=== PATIENT | male | born 1950 | race Caucasian/White ===

== ENCOUNTER 2018-09-03 10:59 | Observation (INO) | payer OTHER, MEDICARE ==
[~2018-09-03] VITALS: Ht 182.9 cm; Wt 94.5 kg
--- NOTE | 2018-09-03 11:07 | ER Report ---
History and Physical Time Seen By MD: 11:07 Hx. of Stated Complaint: PATIENT REPORTS CHEST PAIN THAT STARTED AROUND 03:15. PREVIOUS AL IN 2007 HPI/ROS CHIEF COMPLAINT: Chest pain, bilateral leg weakness HISTORY OF PRESENT ILLNESS: 67-year-old male patient presents to emergency room with complaint of chest pain and bilateral leg weakness. Patient states this been going on since earlier this morning. 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 He states [facility]. He states when he got in there that his legs gave out. Patient states that this happens occasionally, however seems to be happening more frequently. He states that he did fall again some product was tacked in the interwave the [employer]. He states that he's had persistent weakness. Patient stat es that this been going on since around his first back surgery, however seems to be slightly worse. Patient denies having any vomiting, he states he has been nauseated. Patient states that his pain seems the more the epigastric region. He states he does have a medication which he takes for that, however he is not sure what it is. He denies having any fevers or chills. Patient states he's been havi ng intermittent chest pain for the past 2 weeks. He states that doesn't seem to getting better or worse. REVIEW OF SYSTEMS: Respiratory: No cough, no dyspnea. Cardiovascular: As noted above Gastrointestinal: No vomiting, no abdominal pain. Musculoskeletal: As noted above Allergies: Coded Allergies: No Known Drug Allergies (Unverified , 09/03/18) Home Meds No Active Prescriptions or Reported Meds Past Medical/Surgical History Patient has a past medical history of AL, hypertension, small bowel, back pain. Patient has a surgical history of 5 back surgeries. Reviewed Nurses Notes: Yes Hx Substance Use Disorder: No Hx Alcohol Use: No Constitutional Vital Sign - Last 24 Hours 09/03/18 09/03/18 09/03/18 09/03/18 10:59 11:01 11:10 11:29 Temp 98.2 Pulse 88 80 Resp 24 16 B/P (MAP) 112/85 124/82 (96) Pulse Ox 93 95 95 O2 Delivery Nasal Cannula 09/03/18 09/03/18 09/03/18 11:47 11:59 12:00 Pulse 70 Resp 12 B/P (MAP) 118/81 (93) 120/86 (97) Physical Exam General Appearance: The patient is alert, has no immediate need for airway protection and no current signs of toxicity. Respiratory: Chest is non tender, lungs are clear to auscultation. Cardiac: regular rate and rhythm Gastrointestinal: Abdomen is soft and tender in the epigastric region, no masses, bowel sounds normal. Musculoskeletal: Neck: Neck is supple and non tender. Extremities have full range of motion and are non tender. Skin: No rashes or lesions. DIFFERENTIAL DIAGNOSIS: After history and physical exam differential diagnosis was considered for chest pain including but not limited to myocardial ischemia, pericarditis pulmonary embolus, chest wall pain, pleural inflammation and pulmonary infectious causes. Also included is back pain including but not limited to muscular pain, herniated disc, spine fracture, intra-abdominal causes and urinary tract infection. Medical Decision Making Data Points Result Diagram: 09/03/18 1050 09/03/18 1050 Laboratory Hematology Test 09/03/18 10:50 09/03/18 13:10 Red Blood Count 5.10 M/uL (4.00-5.60) Mean Corpuscular Volume 94.6 fL (80.0-96.0) Mean Corpuscular Hemoglobin 32.5 pg (26.0-33.0) Mean Corpuscular Hemoglobin Concent 34.3 g/dL (32.0-36.0) Red Cell Distribution Width 12.7 % (11.5-14.5) Mean Platelet Volume 9.2 fL (7.2-11.1) Neutrophils (%) (Auto) 45.7 % (39.4-72.5) Lymphocytes (%) (Auto) 39.5 % (17.6-49.6) Monocytes (%) (Auto) 8.8 % (4.1-12.4) Eosinophils (%) (Auto) 5.2 % (0.4-6.7) Basophils (%) (Auto) 0.8 % (0.3-1.4) Nucleated RBC Relative Count (auto) 0.1 /100WBC Neutrophils # (Auto) 2.4 K/uL (2.0-7.4) Lymphocytes # (Auto) 2.1 K/uL (1.3-3.6) Monocytes # (Auto) 0.5 K/uL (0.3-1.0) Eosinophils # (Auto) 0.3 K/uL (0.0-0.5) Basophils # (Auto) 0.0 K/uL (0.0-0.1) Nucleated RBC Absolute Count (auto) 0.00 K/uL Prothrombin Time 13.2 seconds (12.0-14.4) Prothromb Time International Ratio 1.00 Activated Partial Thromboplast Time 30 seconds (23-35) D-Dimer Quantitative (PE/DVT) 0.43 ug/ml (0-0.50) Sodium Level 141 mmol/L (137-145) Potassium Level 3.9 mmol/L (3.5-5.0) Chloride Level 104 mmol/L (98-107) Carbon Dioxide Level 33 mmol/L (22-30) Blood Urea Nitrogen 14 mg/dl (9-21) Creatinine 1.20 mg/dl (0.66-1.25) Glomerular Filtration Rate Calc > 60.0 Random Glucose 124 mg/dl (75-110) Calcium Level 9.5 mg/dl (8.4-10.2) Total Bilirubin 0.6 mg/dl (0.2-1.3) Aspartate Amino Transf (AST/SGOT) 31 U/L (0-35) Alanine Aminotransferase (ALT/SGPT) 41 U/L (0-56) Alkaline Phosphatase 51 U/L (0-126) Troponin I < 0.012 ng/ml B-Type Natriuretic Peptide 10 pg/ml (0-100) Total Protein 8.3 g/dl (6.3-8.2) Albumin 4.6 g/dl (3.5-5.0) Amylase Level 44 U/L (0-110) Lipase 43 U/L (23-300) Urine Color Yellow Urine Clarity Clear Urine pH 7.0 pH (4.8-9.5) Urine Specific [place] 1.019 Urine Protein Negative mg/dL (NEGATIVE) Urine Glucose (UA) Negative mg/dL (NEGATIVE) Urine Ketones Negative mg/dL (NEGATIVE) Urine Blood Negative (NEGATIVE) Urine Nitrite Negative (NEGATIVE) Urine Bilirubin Negative (NEGATIVE) Urine Urobilinogen Negative mg/dL (0.2-1.9) Urine Leukocyte Esterase Negative (NEGATIVE) Urine RBC <1 /HPF (0-2/HPF) Urine WBC <1 /HPF (0-5/HPF) Urine Squamous Epithelial Cells None /LPF (</=FEW) Urine Bacteria Negative /HPF (NONE-FEW) Urine Mucus None /HPF (NONE-FEW) Chemistry Test 09/03/18 10:50 09/03/18 13:10 White Blood Count 5.2 k/uL (4.5-11.0) Red Blood Count 5.10 M/uL (4.00-5.60) Hemoglobin 16.5 g/dL (14.0-18.0) Hematocrit 48.2 % (42.0-52.0) Mean Corpuscular Volume 94.6 fL (80.0-96.0) Mean Corpuscular Hemoglobin 32.5 pg (26.0-33.0) Mean Corpuscular Hemoglobin Concent 34.3 g/dL (32.0-36.0) Red Cell Distribution Width 12.7 % (11.5-14.5) Platelet Count 226 K/uL (150-450) Mean Platelet Volume 9.2 fL (7.2-11.1) Neutrophils (%) (Auto) 45.7 % (39.4-72.5) Lymphocytes (%) (Auto) 39.5 % (17.6-49.6) Monocytes (%) (Auto) 8.8 % (4.1-12.4) Eosinophils (%) (Auto) 5.2 % (0.4-6.7) Basophils (%) (Auto) 0.8 % (0.3-1.4) Nucleated RBC Relative Count (auto) 0.1 /100WBC Neutrophils # (Auto) 2.4 K/uL (2.0-7.4) Lymphocytes # (Auto) 2.1 K/uL (1.3-3.6) Monocytes # (Auto) 0.5 K/uL (0.3-1.0) Eosinophils # (Auto) 0.3 K/uL (0.0-0.5) Basophils # (Auto) 0.0 K/uL (0.0-0.1) Nucleated RBC Absolute Count (auto) 0.00 K/uL Prothrombin Time 13.2 seconds (12.0-14.4) Prothromb Time International Ratio 1.00 Activated Partial Thromboplast Time 30 seconds (23-35) D-Dimer Quantitative (PE/DVT) 0.43 ug/ml (0-0.50) Glomerular Filtration Rate Calc > 60.0 Calcium Level 9.5 mg/dl (8.4-10.2) Total Bilirubin 0.6 mg/dl (0.2-1.3) Aspartate Amino Transf (AST/SGOT) 31 U/L (0-35) Alanine Aminotransferase (ALT/SGPT) 41 U/L (0-56) Alkaline Phosphatase 51 U/L (0-126) Troponin I < 0.012 ng/ml B-Type Natriuretic Peptide 10 pg/ml (0-100) Total Protein 8.3 g/dl (6.3-8.2) Albumin 4.6 g/dl (3.5-5.0) Amylase Level 44 U/L (0-110) Lipase 43 U/L (23-300) Urine Color Yellow Urine Clarity Clear Urine pH 7.0 pH (4.8-9.5) Urine Specific [place] 1.019 Urine Protein Negative mg/dL (NEGATIVE) Urine Glucose (UA) Negative mg/dL (NEGATIVE) Urine Ketones Negative mg/dL (NEGATIVE) Urine Blood Negative (NEGATIVE) Urine Nitrite Negative (NEGATIVE) Urine Bilirubin Negative (NEGATIVE) Urine Urobilinogen Negative mg/dL (0.2-1.9) Urine Leukocyte Esterase Negative (NEGATIVE) Urine RBC <1 /HPF (0-2/HPF) Urine WBC <1 /HPF (0-5/HPF) Urine Squamous Epithelial Cells None /LPF (</=FEW) Urine Bacteria Negative /HPF (NONE-FEW) Urine Mucus None /HPF (NONE-FEW) Coagulation Test 09/03/18 10:50 Prothrombin Time 13.2 seconds Prothromb Time International Ratio 1.00 Activated Partial Thromboplast Time 30 seconds D-Dimer Quantitative (PE/DVT) 0.43 ug/ml Urinalysis Test 09/03/18 13:10 Urine Color Yellow Urine Clarity Clear Urine pH 7.0 pH (4.8-9.5) Urine Specific [place] 1.019 Urine Protein Negative mg/dL (NEGATIVE) Urine Glucose (UA) Negative mg/dL (NEGATIVE) Urine Ketones Negative mg/dL (NEGATIVE) Urine Blood Negative (NEGATIVE) Urine Nitrite Negative (NEGATIVE) Urine Bilirubin Negative (NEGATIVE) Urine Urobilinogen Negative mg/dL (0.2-1.9) Urine Leukocyte Esterase Negative (NEGATIVE) Urine RBC <1 /HPF (0-2/HPF) Urine WBC <1 /HPF (0-5/HPF) Urine Squamous Epithelial Cells None /LPF (</=FEW) Urine Bacteria Negative /HPF (NONE-FEW) Urine Mucus None /HPF (NONE-FEW) EKG/Imaging EKG Interpretation 12 lead EKG: Rhythm: normal sinus rhythm [place]: Left axis deviation QRS: normal ST segments: normal Imaging Exam type: CHEST SINGLE AP History: post ng tube placement Comparison: September 03, 2018 at 11:48 AM. Findings: There has been interval placement of an NG tube. The tube is not ideally seen although there appears to be faint visualization of the tube in the left upper quadrant abdomen. Clinical correlation needed. The lungs are free of consolidation. This no evidence pleural effusion's, pneumothorax or pneumomediastinum. The cardiac silhouette is normal in size. IMPRESSION: 1. NG tube is not ideally seen although the distal tip appears to be faintly identified over the left upper quadrant of abdomen. Report Dictated By: Amina Walker MD at 09/03/2018 4:12 PM Report E-Signed By: Amina Walker MD at 09/03/2018 4:[address] ABDOMEN PELVIS W/ CON COMPARISON: None. HISTORY: abdominal pain, epigastric. TECHNIQUE: Axial CT abdomen and pelvis with intravenous contrast. Coronal and sagittal reformats. One of the following dose optimization techniques was utilized in the performance of this exam: automated exposure control; adjustment of the mA and/or kV according to patient size; or use of iterative reconstruction technique. Specific details can be referenced in the facility's radiology CT exam operational policy. CONTRAST: 75 mL of IV Isovue-370. FINDINGS: LUNG BASES: Negative. LIVER: Negative. BILIARY: Negative. SPLEEN: Small granulomatous calcifications indicative of healed previous infection. Otherwise normal. PANCREAS: Negative. ADRENALS: Negative. KIDNEYS: Negative. GI/MESENTERY: Fluid in the under distended stomach. Fluid in the upper normal sized duodenum. Mildly dilated proximal jejunum, containing mostly fluid with a small amount of gas, reaching about 4 cm diameter with transition to normal caliber/ collapsed small bowel distal to this loop suggestive of a partial small bowel obstruction. There is no bowel wall thickening. The appendix is normal. No localized inflammatory fat stranding or free air or free/loculated fluid. Moderate colonic stool, normal versus constipation, otherwise unremarkable. VASCULAR: Mild vascular calcifications. LYMPH NODES: Negative. BLADDER: Negative. PELVIC ORGANS: Negative. BONES: Moderate degenerative changes in the lower thoracic and lumbar spine and in both hips. Previous L5-S1 fusion changes anteriorly and posteriorly. No hardware-related complications are evident. OTHER: Negative. IMPRESSION: 1. Fluid-filled dilated loop of proximal jejunum with transition to normal caliber/collapsed bowel suspicious for a mild partial small bowel obstruction. No specific cause is identified. 2. Moderate colonic stool which may be normal or due to constipation. Report Dictated By: Luis Roberson at 09/03/2018 1:39 PM Report E-Signed By: Luis Roberson at 09/03/2018 1:46 PM Exam type: CHEST PA LAT History: Chest pain radiating to left side Comparison: None. Findings: The lungs are free of acute effusions infiltrates or edema. There is no evidence of a pneumothorax or pneumomediastinum. A calcified granuloma projects over the right upper lobe Cardiac silhouette is normal in size. The trachea is midline. Incompletely imaged are postsurgical changes of the lower cervical spine. On the lateral view there are air-fluid levels in the stomach and bowel although appear nondilated IMPRESSION: 1. No acute cardiopulmonary process is seen Report Dictated By: Amina Walker MD at 09/03/2018 11:54 AM Report E-Signed By: Amnia Walker MD at 09/03/2018 11:56 AM Exam type: L-SPINE >4 VIEWS History: Chest pain radiating to left side Comparison: None. Findings: There are five nonrib-bearing lumbar-type vertebral bodies present. There is no evidence of acute fractures or subluxations. There are postsurgical changes from posterior lumbar interbody fusion at L5-S1 with intervertebral support cage. There is moderate disc space narrowing at L5-S1 and mild disc space narrowing from L1 to L5. Anterior osteophytes are seen throughout the lumbar spine and visualized lower thoracic spine IMPRESSION: 1. Postsurgical changes from posterior lumbar interbody fusion at L5-S1 No evidence of acute fractures or subluxations identified Report Dictated By: Amina Walker MD at 09/03/2018 12:18 PM Report E-Signed By: Amina Walker MD at 09/03/2018 12:20 PM ED Course/Re-evaluation ED Course Patient was admitted to an exam room, history and physical were obtained. Differential diagnoses were considered. On examination lungs are clear, heart regular, abdomen is soft and tender in the epigastric and left upper quadrant. A CBC, CMP, urinalysis, EKG, troponin were done. Labs were unremarkable, troponin was negative. With the patient complaining of weakness to the lower extremity is CT scan of the head was done, chest x-ray were done. The imaging results were unremarkable. I discussed findings with patient. He was continuing to have persistent abdominal pain. As a result we will go ahead and do a CT scan of the abdomen and pelvis. Patient had what appears to be a small bowel obstruction. I discussed findings with patient. I informed her that typically we did go ahead and admit patients to rest the gut and continue with IV hydration. He was okay with that. I discussed the case with Dr. Murphy, general surgeon, who agreed to accept the patient for admission. He requested that a NG tube was placed. That was inserted and the patient tolerated procedure well. Patient was admitted to the floor under the care of Dr. Murphy. Decision to Disposition Date: Sep 03, 2018 Decision to Disposition Time: 14:19 Depart Departure Latest Vital Signs Vital Signs Date Time Temp Pulse Resp B/P (MAP) Pulse Ox O2 Delivery O2 Flow Rate FiO2 09/03/18 12:00 120/86 (97) 09/03/18 11:59 70 12 09/03/18 11:29 95 09/03/18 11:01 98.2 Nasal Cannula Impression: Primary Impression: Small bowel obstruction Condition: Condition Unchanged Disposition: Admitted from ER New Scripts No Active Prescriptions or Reported DARRELL Thompson Sep 03, 2018 11:07
[2018-09-03] MEDS ORDERED: NS(*) 0.9% 1000 ML BAG 1,000 ML IV ONE (11:14)
[2018-09-03 11:23] LABS: PLATELET COUNT, AUTOMATED 226 K/uL (150-450)
--- NOTE | 2018-09-03 11:40 | EKG ---
[facility] PATIENT NAME: PK RAMOS : [id number] MR: [id number] V: [id number] EXAM DATE: ORDERING PHYSICIAN: DARRELL GIBBS TECHNOLOGIST: Test Reason : chest pain Blood Pressure : / mmHG Vent. Rate : 076 BPM Atrial Rate : 076 BPM P-R Int : 174 ms QRS Dur : 088 ms QT Int : 392 ms P-R-T Axes : 040 -32 051 degrees QTc Int : 441 ms Normal sinus rhythm Left axis deviation Inferior infarct , age undetermined Abnormal ECG No previous ECGs available Confirmed by SHAUN LONDONO ([id number]) on 09/03/2018 5:57:48 PM Referred By: Confirmed By:SHAUN LONDONO
--- NOTE | 2018-09-03 12:00 | RADIOLOGY IMAGING REPORT ---
FACILITY: [facility] [place] PATIENT NAME: Ghassan Guerrier : 1950 MR: [id number] V: [id number] EXAM DATE: ORDERING PHYSICIAN: DARRELL GIBBS TECHNOLOGIST: Location: [facility] Patient: Ghassan Guerrier : 1950 Visit/Account:[id number] Date of Sevice: 09/03/2018 Exam type: CHEST PA LAT History: Chest pain radiating to left side Comparison: None. Findings: The lungs are free of acute effusions infiltrates or edema. There is no evidence of a pneumothorax o r pneumomediastinum. A calcified granuloma projects over the right upper lobe Cardiac silhouette is normal in size. The trachea is midline. Incompletely imaged are postsurgical changes of the lower c ervical spine. On the lateral view there are air-fluid levels in the stomach and bowel although appe ar nondilated IMPRESSION: 1. No acute cardiopulmonary process is seen Report Dictated By: Amina Walker MD at 09/03/2018 11:54 AM Report E-Signed By: Amina Walker MD at 09/03/2018 11:56 AM WSN:[email or web address]
--- NOTE | 2018-09-03 12:24 | RADIOLOGY IMAGING REPORT ---
FACILITY: [facility] [place] PATIENT NAME: Ghassan Guerrier : 1950 MR: [id number] V: [id number] EXAM DATE: ORDERING PHYSICIAN: DARRELL GIBBS TECHNOLOGIST: Location: [facility] [place] Patient: Ghassan Guerrier : 1950 Visit/Account:[id number] Date of Sevice: 09/03/2018 Exam type: L-SPINE >4 VIEWS History: Chest pain radiating to left side Comparison: None. Findings: There are five nonrib-bearing lumbar-type vertebral bodies present. There is no evidence of acute fr actures or subluxations. There are postsurgical changes from posterior lumbar interbody fusion at L5 -S1 with intervertebral support cage. There is moderate disc space narrowing at L5-S1 and mild disc space narrowing from L1 to L5. Anterior osteophytes are seen throughout the lumbar spine and visuali zed lower thoracic spine IMPRESSION: 1. Postsurgical changes from posterior lumbar interbody fusion at L5-S1 No evidence of acute fractures or subluxations identified Report Dictated By: Amina Walker MD at 09/03/2018 12:18 PM Report E-Signed By: Amina Walker MD at 09/03/2018 12:20 PM WSN:[email or web address]
[2018-09-03] MEDS ORDERED: LIDOCAINE 2% VISC SLN 15ML UDC PO ONE (12:40)
[2018-09-03] MEDS ORDERED: MAG HYD/AL HYD/SIMETH 30ML UDC PO ONE (12:40)
[2018-09-03] MEDS ORDERED: IOPAMIDOL 76% 100 ML INFUS BTL 100 ML ONE (12:49)
--- NOTE | 2018-09-03 13:50 | RADIOLOGY IMAGING REPORT ---
FACILITY: [facility] PATIENT NAME: Ghassan Guerrier : 1950 MR: [id number] V: [id number] EXAM DATE: ORDERING PHYSICIAN: DARRELL GIBBS TECHNOLOGIST: Location: [facility] Patient: Ghassan Guerrier : 1950 Visit/Account:[id number] Date of Sevice: 09/03/2018 CT ABDOMEN PELVIS W/ CON COMPARISON: None. HISTORY: abdominal pain, epigastric. TECHNIQUE: Axial CT abdomen and pelvis with intravenous contrast. Coronal and sagittal reformats. O ne of the following dose optimization techniques was utilized in the performance of this exam: autom ated exposure control; adjustment of the mA and/or kV according to patient size; or use of iterative reconstruction technique. Specific details can be referenced in the facility's radiology CT exam ope rational policy. CONTRAST: 75 mL of IV Isovue-370. FINDINGS: LUNG BASES: Negative. LIVER: Negative. BILIARY: Negative. SPLEEN: Small granulomatous calcifications indicative of healed previous infection. Otherwise normal . PANCREAS: Negative. ADRENALS: Negative. KIDNEYS: Negative. GI/MESENTERY: Fluid in the under distended stomach. Fluid in the upper normal sized duodenum. Mildly dilated proximal jejunum, containing mostly fluid with a small amount of gas, reaching about 4 cm di ameter with transition to normal caliber/ collapsed small bowel distal to this loop suggestive of a p artial small bowel obstruction. There is no bowel wall thickening. The appendix is normal. No localiz ed inflammatory fat stranding or free air or free/loculated fluid. Moderate colonic stool, normal luanne paris constipation, otherwise unremarkable. VASCULAR: Mild vascular calcifications. LYMPH NODES: Negative. BLADDER: Negative. PELVIC ORGANS: Negative. BONES: Moderate degenerative changes in the lower thoracic and lumbar spine and in both hips. Previo us L5-S1 fusion changes anteriorly and posteriorly. No hardware-related complications are evident. OTHER: Negative. IMPRESSION: 1. Fluid-filled dilated loop of proximal jejunum with transition to normal caliber/collapsed bowel s uspicious for a mild partial small bowel obstruction. No specific cause is identified. 2. Moderate colonic stool which may be normal or due to constipation. Report Dictated By: Luis Roberson at 09/03/2018 1:39 PM Report E-Signed By: Luis Roberson at 09/03/2018 1:46 PM WSN:[id number]
[2018-09-03] MEDS ORDERED: MORPHINE 4 MG/ML SDV IVP ONE (14:20)
[2018-09-03] MEDS ORDERED: ONDANSETRON 4 MG/2 ML VIAL IVP PRN ×2 (15:10→21:35)
[2018-09-03] MEDS ORDERED: NS(*) 0.9% 1000 ML BAG 1,000 ML IV PRN (15:10)
[2018-09-03 15:34] VITALS: BP 132/83
--- NOTE | 2018-09-03 16:43 | RADIOLOGY IMAGING REPORT ---
FACILITY: [facility] PATIENT NAME: Ghassan Guerrier : 1950 MR: [id number] V: [id number] EXAM DATE: ORDERING PHYSICIAN: DARRELL GIBBS TECHNOLOGIST: Location: [facility] [place] Patient: Ghassan Guerrier : 1950 Visit/Account:[id number] Date of Sevice: 09/03/2018 Exam type: CHEST SINGLE AP History: post ng tube placement Comparison: September 03, 2018 at 11:48 AM. Findings: There has been interval placement of an NG tube. The tube is not ideally seen although there appears to be faint visualization of the tube in the left upper quadrant abdomen. Clinical correlation need ed. The lungs are free of consolidation. This no evidence pleural effusion's, pneumothorax or pneum omediastinum. The cardiac silhouette is normal in size. IMPRESSION: 1. NG tube is not ideally seen although the distal tip appears to be faintly identified over the lef t upper quadrant of abdomen. Report Dictated By: Amina Walker MD at 09/03/2018 4:12 PM Report E-Signed By: Amina Walker MD at 09/03/2018 4:39 PM WSN:[email or web address]
[2018-09-03 18:55] VITALS: BP 119/85
[2018-09-03] MEDS: MORPHINE 2 MG/ML SYR IVP PRN (19:29)
[2018-09-03] MEDS ORDERED: FLUSH 10 ML SYR IVP PRN (21:35)
[2018-09-03] MEDS ORDERED: PANTOPRAZOLE SOD 40 MG IV VIAL IVP ONE (21:35)
--- NOTE | 2018-09-03 21:49 | Gen Surgery History & Physical ---
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 He thought he was having a heart attack so he came in to the ER for evaluation. He had similar symptoms last week and he was apparently evaluated by his PCM in [place] but he was told nothing was found although no testing was completed, according to the patient. In the ER, a CT revealed a SBO involving his proximal jejunum. He feels bloated. He hasn't passed flatus for 2 days, last BM was yesterday, apparently normal. No h/o abdominal surgery. No previous h/o SBO. No emesis, only nausea for the last day. He has a h/o depression and chronic back pain and he can tell me he takes Wellbutrin and oxycodone but he can't tell me his doses or any of his other medications. History Problems: (1) Depression Status: Chronic (2) Chronic back pain Status: Chronic (3) Hypertension Status: Chronic Home Meds No Active Prescriptions or Reported Meds Allergies: Coded Allergies: No Known Drug Allergies (Unverified , 09/03/18) Patient History: FH: atrial fibrillation MOTHER FH: prostate cancer FATHER Review of Systems All Systems Reviewed/Normal: Yes, Except as Noted Cardiovascular: Chest Pain Gastrointestinal: Abdominal Pain Exam General Appearance: Alert, Awake, No Acute Distress, Afebrile Neuro: No Gross deficits Eyes: PERRLA Cardiovascular: Regular Rate and Rhythm Respiratory: Clear to Auscultation GI: Other (Soft, mild epigastric TTP, no palpable mass or bulge.) Extremities: Warm, Perfused Psych: Appropriate Mood & Affect Medical Decision Making Data Points Result Diagram: 09/03/18 1050 09/03/18 1050 Assessment and Plan Problems: (1) Small bowel obstruction Status: Acute Assessment & Plan: 09/03/18: SBO, specifically proximal jejunum. No h/o abdominal surgeries. Could be related to enteritis, ulcer, IBD, neoplasm. Will admit, NPO, bowel rest, NG tube decompression. Will order UGI/SBFT tomorrow to see if this gives us an idea as to the cause of his obstruction. I have explained his findings as well as this plan with the patient and he seems to understand and seems agreeable with this plan. According to nursing staff, his will call in the morning with all of his medications, frequencies, and dosing. Will hold off on his regular medications until GI function better and we have confirmed his medications. Since he was having chest pain (cardiac w/u negative) will watch him on telemetry for a day or two. Will start PPI rx and lovenox for GI prophylaxis. Condition Stable. Time Spent: < 30 min Venous Thromboembolism VTE Risk Physician Assess for VTE Risk: Yes Patient's VTE Risk: Low VTE Diagnostic Test 2 Days Prior to Admit: No Antithrombotics Is Pt On Any Antithrombotics?: No SHAUN BRYANT MD Sep 03, 2018 21:49
[2018-09-03] MEDS: KCL/D1/2NS 20 MEQ 1000 ML 1,000 ML IV PRN (22:18)
[2018-09-03 22:55] VITALS: BP 121/73
[2018-09-04 02:55] VITALS: BP 130/79
[2018-09-04] MEDS: MORPHINE 2 MG/ML SYR IVP PRN ×2 (03:18→08:29)
[2018-09-04] MEDS: KCL/D1/2NS 20 MEQ 1000 ML 1,000 ML IV PRN ×2 (06:10→20:44)
[2018-09-04 06:24] LABS: PLATELET COUNT, AUTOMATED 183 K/uL (150-450)
[2018-09-04 07:08] VITALS: BP 123/72
--- NOTE | 2018-09-04 08:39 | General Surgery Progress Note ---
Subjective Progress Notes Subjective No complaints other than the NG tube causing a sore throat this morning. He reports that he is passing gas at this point but no bowel movement. No abdominal pain right now. Physical Exam Vital Signs Date Time Temp Pulse Resp B/P (MAP) Pulse Ox O2 Delivery O2 Flow Rate FiO2 09/04/18 07:08 97.4 64 20 123/72 (89) 96 Nasal Cannula 09/04/18 02:55 1.0 Intake and Output 09/04/18 06:59 Intake Total 2606 ml Output Total 750 ml Balance 1856 ml Intake Oral 0 ml IV Total 2606 ml Output Gastric Drainage Total 750 ml # Voids 1 General Appearance: Alert, Awake, No Acute Distress, Afebrile GI: Soft and Non-Tender Extremities: Warm, Perfused Result Diagram: 09/04/1853209/04/18532 Assessment and Plan Problems: (1) Small bowel obstruction Status: Acute Assessment & Plan: 09/03/18: SBO, specifically proximal jejunum. No h/o abdominal surgeries. Could be related to enteritis, ulcer, IBD, neoplasm. Will admit, NPO, bowel rest, NG tube decompression. Will order UGI/SBFT tomorrow to see if this gives us an idea as to the cause of his obstruction. I have explained his findings as well as this plan with the patient and he seems to understand and seems agreeable with this plan. According to nursing staff, his will call in the morning with all of his medications, frequencies, and dosing. Will hold off on his regular medications until GI function better and we have confirmed his medications. Since he was having chest pain (cardiac w/u negative) will watch him on telemetry for a day or two. Will start PPI rx and lovenox for GI prophylaxis. 09/04/18: Clinically seems to be doing better. He wants to get the NG tube out. I have recommended we get the upper GI and small bowel follow-through today while the tube is in and if unremarkable and it looks clinically advisable to do so then we can remove the NG tube later today. The patient seems agreeable with this plan after I explained to him. I have talked to the radiologist and asked i f we can start with Gastrografin and if it progresses through his upper GI tract and through his jejunum without problems then to use barium to increase the diagnostic yield of the study. She is in agreement with this. Continue bowel rest and NG tube decompression until after the radiology test today. We'll continue IV fluids as well. Condition Stable Time Spent: < 30 min Exam Sepsis Risk: No Definite Risk SHAUN BRYANT MD Sep 04, 2018 08:39
[2018-09-04] MEDS ORDERED: BENZOCAINE/MENTHOL 1 EACH LOZG PO PRN (08:40)
[2018-09-04] MEDS ORDERED: PANTOPRAZOLE SOD 40 MG IV VIAL IVP SCH (09:00)
[2018-09-04] MEDS ORDERED: DIATRIZOATE MEGL/DIATRIZOA SOD 120 ML SOLN PO ONE (09:22)
[2018-09-04] MEDS ORDERED: BARIUM SULFATE 176 GM BTL PO ONE (09:26)
[2018-09-04 11:23] VITALS: BP 137/84
[2018-09-04] MEDS: ENOXAPARIN 40 MG/0.4ML SYR SC SCH (11:34)
[2018-09-04 11:56] VITALS: Ht 182.9 cm; Wt 94.5 kg
[2018-09-04] MEDS: PANTOPRAZOLE SOD 20 MG TABEC PO SCH (12:20)
--- NOTE | 2018-09-04 12:24 | General Surgery Progress Note ---
Subjective Progress Notes Subjective no new issues, wants NG out Physical Exam Vital Signs Date Time Temp Pulse Resp B/P (MAP) Pulse Ox O2 Delivery O2 Flow Rate FiO2 09/04/18 11:23 97.8 59 18 137/84 (101) 96 Nasal Cannula 1.0 Intake and Output 09/04/18 07:00 Intake Total 2606 ml Output Total 750 ml Balance 1856 ml Intake Oral 0 ml IV Total 2606 ml Output Gastric Drainage Total 750 ml # Voids 1 General Appearance: Alert, Awake, No Acute Distress, Afebrile GI: Soft and Non-Tender Result Diagram: 09/04/18 0533 09/04/1833 Assessment and Plan Problems: (1) Small bowel obstruction Status: Acute Assessment & Plan: 09/03/18: SBO, specifically proximal jejunum. No h/o abdominal surgeries. Could be related to enteritis, ulcer, IBD, neoplasm. Will admit, NPO, bowel rest, NG tube decompression. Will order UGI/SBFT tomorrow to see if this gives us an idea as to the cause of his obstruction. I have explained his findings as well as this plan with the patient and he seems to understand and seems agreeable with this plan. According to nursing staff, his will call in the morning with all of his medications, frequencies, and dosing. Will hold off on his regular medications until GI function better and we have confirmed his medications. Since he was having chest pain (cardiac w/u negative) will watch him on telemetry for a day or two. Will start PPI rx and lovenox for GI prophylaxis. 09/04/18: Clinically seems to be doing better. He wants to get the NG tube out. I have recommended we get the upper GI and small bowel follow-through today while the tube is in and if unremarkable and it looks clinically advisable to do so then we can remove the NG tube later today. The patient seems agreeable with this plan after I explained to him. I have talked to the radiologist and asked if we can start with Gastrografin and if it progresses through his upper GI tract and through his jejunum without problems then to use barium to increase the diagnostic yield of the study. She is in agreement with this. Continue bowel rest and NG tube decompression until after the radiology test today. We'll continue IV fluids as well. 09/04/18: SBFT with contrast into colon within 2 hours. Will DC NGT and ADAT. Fleets enema today. Needs to be up and ambulating. Anticipate DC in am. Exam Sepsis Risk: No Definite Risk MERCEDES MCGARRY MD Sep 04, 2018 12:24
--- NOTE | 2018-09-04 14:21 | RADIOLOGY IMAGING REPORT ---
FACILITY: [facility] PATIENT NAME: Ghassan Guerrier : 1950 MR: [id number] V: [id number] EXAM DATE: ORDERING PHYSICIAN: SHAUN BRYANT TECHNOLOGIST: Location: [facility] Patient: Ghassan Guerrier : 1950 Visit/Account:[id number] Date of Sevice: 09/04/2018 Exam type: XR UPPER GI & SM BOWEL History: Partial jejunal obstruction Comparison: CT abdomen and pelvis September 03, 2018. Findings: Patient first received 240 mL of Gastrografin diluted with water through the NG tube. Gastrografin w as observed to pass through the proximal jejunum without evidence of obstruction. The patient then r eceived 100 mL of thin barium which was followed throughout the nondilated small bowel to the unremar kable terminal ileum. Air contrast was not performed Transit time to the transverse colon was one h our and 10 minutes. No gross abnormality the stomach or small bowel mucosal was identified.. A smal l amount gastroesophageal reflux was observed around the NG tube during the examination. The possibl y dose area product was 2442.09 micro-Amaya per meter squared IMPRESSION: 1. No evidence of small bowel obstruction with transit time to the transverse colon at one hour and 10 minutes with no evidence of focal small bowel dilatation No gross abnormality of the stomach was identified on this nonair-contrast study. Small amount of gastroesophageal reflux was observed around the NG tube Report Dictated By: Amina Walker MD at 09/04/2018 2:12 PM Report E-Signed By: Amina Walker MD at 09/04/2018 2:15 PM WSN:[email or web address]
--- NOTE | 2018-09-04 14:32 | Medical Nutrition Therapy ---
Nutrition Anthropometrics Height (Inches): 72.00 Height (Calculated Centimeters: 182.946915 Weight (Pounds): 208 Weight (Calculated Kilograms): 94.489 Cliff Nutrition Score: Adequate Cliff Nutrition Risk Score: 20 Dietary Referral Nutrition Risk Factors: Nutrition Risk Comment: Physical Findings Physical Appearance: Overweight BMI 25-29 Skin Appearance Skin Appearance: Edema Edema Location Modifier: Edema Location: Type of Edema: Degree of Edema: Gastrointestinal Symptoms GI Symtoms: Bloating Tube Present: NG Bowel Sounds: Recent Bowel Pattern: Stool Characteristics: Nutritional Diagnosis Nutritional Risk Acuity 1: GI Obstruction Past Medical History: Depression, back pain, hypertension Nutritional Acuity: 1-High Nutrition Diagnosis: Altered GI Function Nutrition Etiology: Physiological Causes Nutrition Problem/Etiology/Sym: Altered GI function as related to physiological causes as evidenced by a small bowel obstruction Energy Requirement: 2319 (M-St. Jeor X 1.1 (TEF) X 1.2 (activity factor)) Adjusted Energy Requirement Re: 1819 (-500kcal/day for a 1#/wk weight loss.) Protein Requirement: 75 (0.8g protein/kg) Fluid Requirement: 2350 (25mL/kg) Diet Type: Diet as Tolerated MARGARET/REG Nutrition Monitoring & Eval Nutrition Goals: Eat 50-100% Meal Nutritional Goals Comment: Consume 50-100% of meals. RD Patient Assessment Time: [address] Assessment Type: RD Screen Patient Nutrition Acuity: 1-High Follow Up Date: Sep 06, 2018 Nutritional Comment: Pt admitted with chest pain and epigastric pain. Reports nausea. Dx with small bowel obstruction. Hx of depression, back pain, and hypertension. Pt taking enoxaparin. CO2 has improved form 33 to 30. Whole blood glucose was elevated at 113, and random glucose has varied from 124-131. Pt NPO/ice chips only. Monitor for progression of diet. -DAGMAR 09/04/18-As of 2:30pm pt has progress to MARGARET.-TOAN HORTON Sep 04, 2018 14:32
[2018-09-04] MEDS ORDERED: LACTULOSE 10 GM/15 ML UDCUP PO PRN (19:15)
[2018-09-04 20:00] VITALS: BP 128/72
[2018-09-04] MEDS: buPROPion SR 100 MG TABSR PO SCH (20:44)
[2018-09-04] MEDS ORDERED: clonazePAM 1 MG TAB PO SCH (21:00)
[2018-09-04] MEDS ORDERED: TAMSULOSIN HCL 0.4 MG CAP PO SCH (21:00)
[2018-09-04] MEDS ORDERED: DOCUSATE SOD/SENNA 1 EACH TAB PO SCH (21:00)
[2018-09-05 04:06] VITALS: BP 130/74
--- NOTE | 2018-09-05 06:58 | General Surgery Progress Note ---
Subjective Progress Notes Subjective feeling tired, tolerating PO, had several BM's Physical Exam Vital Signs Date Time Temp Pulse Resp B/P (MAP) Pulse Ox O2 Delivery O2 Flow Rate FiO2 09/05/18 04:06 98.0 58 12 130/74 (92) Room Air 90.0 09/04/18 20:48 93 Intake and Output 09/05/18 07:00 Intake Total 320 ml Output Total 250 ml Balance 70 ml Intake Oral 320 ml Output Gastric Drainage Total 250 ml # Voids 4 # Bowel Movements 5 General Appearance: Alert, Awake, No Acute Distress Neuro: No Gross deficits ENT: Moist Mucous Membranes Cardiovascular: Normal Rhythm & Peripheral Pulses, Regular Rate and Rhythm Respiratory: No Respiratory Distress, Clear to Auscultation GI: Soft and Non-Tender Result Diagram: 09/04/1833 09/04/18532 Assessment and Plan Problems: (1) Small bowel obstruction Status: Acute Assessment & Plan: 09/03/18: SBO, specifically proximal jejunum. No h/o abdominal surgeries. Could be related to enteritis, ulcer, IBD, neoplasm. Will admit, NPO, bowel rest, NG tube decompression. Will order UGI/SBFT tomorrow to see if this gives us an idea as to the cause of his obstruction. I have explained his findings as well as this plan with the patient and he seems to understand and seems agreeable with this plan. According to nursing staff, his will call in the morning with all of his medications, frequencies, and dosing. Will hold off on his regular medications until GI function better and we have confirmed his medications. Since he was having chest pain (cardiac w/u negative) will watch him on telemetry for a day or two. Will start PPI rx and lovenox for GI prophylaxis. 09/04/18: Clinically seems to be doing better. He wants to get the NG tube out. I have recommended we get the upper GI and small bowel follow-through today while the tube is in and if unremarkable and it looks clinically advisable to do so then we can remove the NG tube later today. The patient seems agreeable with this plan after I explained to him. I have talked to the radiologist and asked if we can start with Gastrografin and if it progresses through his upper GI tract and through his jejunum without problems then to use barium to increase the diagnostic yield of the study. She is in agreement with this. Continue bowel rest and NG tube decompression until after the radiology test today. We'll josé miguel nue IV fluids as well. 09/04/18: SBFT with contrast into colon within 2 hours. Will DC NGT and ADAT. Fleets enema today. Needs to be up and ambulating. Anticipate DC in am. 09/05/18: Tolerating PO, Had several BM's, Abdomen is benign. DC home. Patient to follow up with his PCP upon return home. Time Spent: < 30 min Exam Sepsis Risk: No Definite Risk MERCEDES MCGARRY MD Sep 05, 2018 06:58
--- NOTE | 2018-09-05 07:04 | Hospitalist Depart ---
Discharge Summary Reason for Hosp/Final Diag: (1) Small bowel obstruction Status: Acute Hospital Course & Plan: 09/03/18: SBO, specifically proximal jejunum. No h/o abdominal surgeries. Could be related to enteritis, ulcer, IBD, neoplasm. Will admit, NPO, bowel rest, NG tube decompression. Will order UGI/SBFT tomorrow to see if this gives us an idea as to the cause of his obstruction. I have explained his findings as well as this plan with the patient and he seems to understand and seems agreeable with this plan. According to nursing staff, his will call in the morning with all of his medications, frequencies, and dosing. Will hold off on his regular medications until GI function better and we have confirmed his medications. Since he was having chest pain (cardiac w/u negative) will watch him on telemetry for a day or two. Will start PPI rx and lovenox for GI prophylaxis. 09/04/18: Clinically seems to be doing better. He wants to get the NG tube out. I have recommended we get the upper GI and small bowel follow-through today while the tube is in and if unremarkable and it looks clinically advisable to do so then we can remove the NG tube later today. The patient seems agreeable with this plan after I explained to him. I have talked to the radiologist and asked if we can start with Gastrografin and if it progresses through his upper GI tract and through his jejunum without problems then to use barium to increase the diagnostic yield of the study. She is in agreement with this. Continue bowel rest and NG tube decompression until after the radiology test today. We'll continue IV fluids as well. 09/04/18: SBFT with contrast into colon within 2 hours. Will DC NGT and ADAT. Fleets enema today. Needs to be up and ambulating. Anticipate DC in am. 09/05/18: Tolerating PO, Had several BM's, Abdomen is benign. DC home. Patient to follow up with his PCP upon return home. (2) Constipation due to pain medication Status: Chronic Departure Weight (Pounds): 208 Weight (Ounces): 5.0 Result Diagram: 09/04/18 0533 09/04/18532 Condition: Improved Discharge: Home, Self Care Discharge Code Status: Full Code Time Spent: < 30 min Discharge Instructions Home Meds No Active Prescriptions or Reported Meds Diet: Regular Activity: As Tolerated Special Instructions: patient to resume his home medication. Patient cautioned to not take his narcotic and the klonipin due to risk of . Venous Thromboembolism Antithrombotics Is Pt On Any Antithrombotics?: MERCEDES Howard MD Sep 05, 2018 07:04
[2018-09-05 07:13] VITALS: BP 104/89
[2018-09-05] MEDS: ENOXAPARIN 40 MG/0.4ML SYR SC SCH (08:53)
[2018-09-05] MEDS: PANTOPRAZOLE SOD 20 MG TABEC PO SCH (08:53)
[2018-09-05] MEDS: buPROPion SR 100 MG TABSR PO SCH (08:53)
== END 2018-09-05 07:05 | disposition home or self-care (01) ==
LOC: EDBD 11:04 → ER 11:04 → INTOOBSV 14:34 → MED 14:34
PROVIDERS: ADMIT Surgery; ATTEND Surgery
DX: K56.609 Unspecified intestinal obstruction, unspecified as to partial versus complete obstruction (principal); K59.03 Drug induced constipation; F32.9 Major depressive disorder, single episode, unspecified; G89.29 Other chronic pain; I10 Essential (primary) hypertension; I25.2 Old myocardial infarction
CPT/HCPCS: 36415; 36416; 71045; 71046; 72120; 74177; 74245; 81001; 82150; 82948; 83690; 83880; 84484; 85025; 85379; 85610; 85730; 93005; 96361; 96374; 99285; C9113; G0378; J1650; J2270; J3480; J7030; Q9967; 82040; 82247; 82310; 82374; 82435; 82565; 82947; 84075; 84132; 84155; 84295; 84450; 84460; 84520

== ENCOUNTER → 2018-09-03 | Outpatient (CLI) | payer OTHER, MEDICARE ==
[2018-09-04 11:56] VITALS: BMI 28.2
== END ==
LOC: AMB 10:35
PROVIDERS: ATTEND Nurse Practitioner
DX: R07.9 Chest pain, unspecified (principal)
CPT/HCPCS: A0425; A0427